=== PATIENT | male | born 1945 | race African-American/Black ===

== ENCOUNTER → 2017-09-01 | Day surgery (SDC) | payer MEDICARE, MEDICAID ==
[~2017-09-01] VITALS: Ht 175.3 cm; Wt 63.5 kg
[~2017-09-01] MED LIST: BACITRACIN 50,000 UNITS/VIAL ONE; BUPIVACAINE HCL/PF 0.5% (5MG/ML) 10ML ONE; LIDOCAINE HCL 1% 20ML VIAL (Pyxis) INJ ONE; NORMAL SALINE 0.9% 10 ML SYR ONE; QUIN20TA30 PO; TAMS0.4C31 PO; TYLENOL #4 PO
[2017-09-01] MEDS: LACTATED RINGERS 1,000 ML IV SCH (09:50)
[2017-09-01 10:13] LABS: BASOPHILS % 0.6 % (0.0-2.0); EOSINOPHILS % 3.9 % (0.0-5.0); HEMATOCRIT. 37.7 % (42.0-52.0); HEMOGLOBIN. 12.7 g/dL (14.0-18.0); LYMPHOCYTES % 38.6 % (20.0-50.0); MEAN CORPUSCULAR HEMOGLOBIN 31.6 pg (28.0-32.0); MEAN CORPUSCULAR VOLUME 93.7 fL (80.0-94.0); MEAN PLATELET VOLUME 7.5 fl (7.4-10.4); NEUTROPHILS % 46.9 % (40.0-76.0); PLATELET 158 x1000/uL (130-400); RED BLOOD CELL COUNT 4.03 mill/uL (4.7-6.1); RED CELL DISTRIBUTION WIDTH 13.6 % (11.6-14.6)
[2017-09-01 10:25] LABS: INR 1.1; PARTIAL THROMBOPLASTIN TIME 35.3 sec (23.4-31.0); PROTHROMBIN TIME 11.2 sec (9.4-11.6)
[2017-09-01 10:26] LABS: CARBON DIOXIDE 27 mEq/L (21-32); CHLORIDE 109 mEq/L (98-107)
[2017-09-01 12:00] LABS: CLARITY URINE CLEAR (CLEAR); COLOR URINE YELLOW (YELLOW); KETONES URINE NEGATIVE (NEGATIVE); LEUKOCYTE ESTERASE URINE 3+ (NEGATIVE); NITRITE URINE NEGATIVE (NEGATIVE); OCCULT BLOOD URINE TRACE (NEGATIVE); PH URINE 5.5 (4.5-8.0); PROTEIN URINE NEGATIVE (NEGATIVE); SPECIFIC GRAVITY URINE 1.008 (1.005-1.030); UROBILINOGEN URINE 0.2 E.U./dL (0.2-1.0)
== END | disposition home or self-care (01) ==
LOC: OR 08:14
PROVIDERS: ATTEND Specialist
DX: K40.91 Unilateral inguinal hernia, without obstruction or gangrene, recurrent (principal); Z53.8 Procedure and treatment not carried out for other reasons; N39.0 Urinary tract infection, site not specified
CPT/HCPCS: 36415; 49507; 80048; 81001; 85025; 85610; 85730; 87077; 87086; 87186; 93005; J7120; A4216; J3490

== ENCOUNTER 2018-05-06 12:18 | Inpatient (IN) | payer MEDICARE, MEDICAID ==
[2018-05-06] VITALS (15 sets, daily range): BP systolic 115–146; BP diastolic 63–93
[~2018-05-06] VITALS: Ht 175.3 cm; Wt 69.4 kg
[~2018-05-06 12:18] MED LIST changes: -BACITRACIN 50,000 UNITS/VIAL ONE; -BUPIVACAINE HCL/PF 0.5% (5MG/ML) 10ML ONE; +HYDR-4001 PO; -LIDOCAINE HCL 1% 20ML VIAL (Pyxis) INJ ONE; -NORMAL SALINE 0.9% 10 ML SYR ONE; +SULF1TAB48 PO; -TYLENOL #4 PO
[2018-05-06] MEDS ORDERED: SODIUM CHLORIDE 0.9% 1,000 ML IV ONE (13:15)
[2018-05-06] MEDS ORDERED: METHYLPREDNISOLONE SOD SUCC 125 MG/2 ML VIAL IV ONE (13:15)
[2018-05-06] MEDS ORDERED: MORPHINE SULFATE 4 MG/ML CPJ (NOT FOR IM USE) IV ONE (13:30)
[2018-05-06] MEDS ORDERED: NA PHOS,M-B/NA PHOS,DI-BA ENEMA 118ML PR PRN (15:00)
[2018-05-06] MEDS ORDERED: ACETAMINOPHEN 650MG SUPP PR PRN (15:00)
[2018-05-06] MEDS ORDERED: ACETAMINOPHEN 650MG/20.3ML UDC GT PRN (15:00)
[2018-05-06] MEDS ORDERED: DOCUSATE SODIUM 100MG CAPSULE PO PRN (15:00)
[2018-05-06] MEDS ORDERED: GUAIFENESIN 200MG/10ML SUGAR FREE UDC PO PRN (15:00)
[2018-05-06] MEDS ORDERED: CLONIDINE 0.1MG TABLET PO PRN (15:00)
[2018-05-06] MEDS ORDERED: IPRATROPIUM/ALBUTEROL 0.5-3(2.5)MG/3ML NEB INH PRN (15:00)
[2018-05-06] MEDS ORDERED: MAGNESIUM/ALUMINUM HYDROXIDE/SIMETHICONE 30ML UDC PO PRN (15:00)
[2018-05-06] MEDS ORDERED: ONDANSETRON HCL 4MG/2ML INJ IV PRN (15:00)
[2018-05-06] MEDS ORDERED: ACETAMINOPHEN 325MG TABLET PO PRN (15:00)
[2018-05-06 15:29] LABS: BASOPHILS % 0.2 % (0.0-2.0); CHLORIDE 106 mEq/L (98-107); EOSINOPHILS % 11.3 % (0.0-5.0); HEMATOCRIT. 34.6 % (42.0-52.0); HEMOGLOBIN. 11.5 g/dL (14.0-18.0); LYMPHOCYTES % 7.2 % (20.0-50.0); MEAN CORPUSCULAR HEMOGLOBIN 31.4 pg (28.0-32.0); MEAN CORPUSCULAR VOLUME 94.3 fL (80.0-94.0); MEAN PLATELET VOLUME 8.9 fl (7.4-10.4); MONOCYTES % 3.2 % (2.0-8.0); NEUTROPHILS % 78.1 % (40.0-76.0); PLATELET 113 x1000/uL (130-400); RED BLOOD CELL COUNT 3.66 mill/uL (4.7-6.1); RED CELL DISTRIBUTION WIDTH 13.8 % (11.6-14.6)
[2018-05-06 15:53] LABS: INR 1.1; PROTHROMBIN TIME 10.9 sec (9.1-11.1)
[2018-05-06] MEDS: MONTELUKAST SODIUM 10MG TABLET PO SCH (16:43)
[2018-05-06] MEDS: DIPHENHYDRAMINE 50MG/ML VIAL IV PRN ×2 (16:43→23:30)
[2018-05-06] MEDS: FAMOTIDINE 20MG TABLET PO SCH (16:43)
[2018-05-06] MEDS: MORPHINE SULFATE 4 MG/ML CPJ (NOT FOR IM USE) IV PRN ×2 (16:43→23:31)
[2018-05-06] MEDS: SODIUM CHLORIDE 0.9% 1,000 ML IV SCH ×2 (16:44→23:32)
[2018-05-06] MEDS: METHYLPREDNISOLONE SOD SUCC 125 MG/2 ML VIAL IV SCH (20:07)
[2018-05-07] VITALS (24 sets, daily range): BP systolic 113–167; BP diastolic 63–89
[2018-05-07] MEDS: IPRATROPIUM/ALBUTEROL 0.5-3(2.5)MG/3ML NEB HHN SCH ×4 (02:14→20:56)
[2018-05-07] MEDS: METHYLPREDNISOLONE SOD SUCC 125 MG/2 ML VIAL IV SCH ×4 (03:25→20:37)
[2018-05-07 03:46] LABS: CLARITY URINE CLOUDY (CLEAR); COLOR URINE YELLOW (YELLOW); KETONES URINE NEGATIVE (NEGATIVE); LEUKOCYTE ESTERASE URINE 3+ (NEGATIVE); NITRITE URINE NEGATIVE (NEGATIVE); OCCULT BLOOD URINE NEGATIVE (NEGATIVE); PROTEIN URINE 1+ (NEGATIVE); UROBILINOGEN URINE 0.2 E.U./dL (0.2-1.0)
[2018-05-07] MEDS: DIPHENHYDRAMINE 50MG/ML VIAL IV PRN (04:10)
[2018-05-07] MEDS: MORPHINE SULFATE 4 MG/ML CPJ (NOT FOR IM USE) IV PRN (04:11)
[2018-05-07 04:26] LABS: *AMPHETAMINES SCREEN URINE NEGATIVE (NEGATIVE); *COCAINE SCREEN URINE PRESUMTIVE POSITIVE (NEGATIVE); CANNABINOID URINE SCREEN PRESUMTIVE POSITIVE (NEGATIVE); METHADONE URINE SCREEN NEGATIVE (NEGATIVE); OPIATES URINE SCREEN PRESUMTIVE POSITIVE (NEGATIVE); PHENCYCLIDINE URINE SCREEN NEGATIVE (NEGATIVE)
[2018-05-07 04:27] LABS: *BARBITURATES SCREEN URINE NEGATIVE (NEGATIVE); *BENZODIAZEPINES SCREEN URINE NEGATIVE (NEGATIVE)
[2018-05-07 05:23] LABS: BASOPHILS % 0.1 % (0.0-2.0); EOSINOPHILS % 3.6 % (0.0-5.0); HEMATOCRIT. 34.3 % (42.0-52.0); HEMOGLOBIN. 11.6 g/dL (14.0-18.0); LYMPHOCYTES % 7.4 % (20.0-50.0); MEAN CORPUSCULAR HEMOGLOBIN 31.5 pg (28.0-32.0); MEAN CORPUSCULAR VOLUME 93.4 fL (80.0-94.0); MEAN PLATELET VOLUME 9.1 fl (7.4-10.4); MONOCYTES % 3.4 % (2.0-8.0); NEUTROPHILS % 85.5 % (40.0-76.0); PLATELET 113 x1000/uL (130-400); RED BLOOD CELL COUNT 3.68 mill/uL (4.7-6.1); RED CELL DISTRIBUTION WIDTH 14.2 % (11.6-14.6)
[2018-05-07 05:34] LABS: CHLORIDE 110 mEq/L (98-107)
[2018-05-07 05:43] LABS: PHOSPHORUS 2.8 mg/dL (2.5-4.9)
[2018-05-07 05:45] LABS: LDL CHOLESTEROL 73 mg/dL (5-100)
[2018-05-07 05:46] LABS: HDL CHOLESTEROL 23 mg/dL (40-59)
[2018-05-07] MEDS: FAMOTIDINE 20MG TABLET PO SCH (09:01)
[2018-05-07] MEDS: SODIUM CHLORIDE 0.9% 1,000 ML IV SCH ×2 (10:31→20:37)
[2018-05-07] MEDS ORDERED: SODIUM CHLORIDE 0.9% IV SCH (12:00)
[2018-05-07] MEDS ORDERED: AMPICILLIN IV SCH (12:00)
[2018-05-07] MEDS: AMPICILLIN 500MG in SODIUM CHLORIDE 0.9% 50ML IV SCH ×2 (13:54→22:29)
[2018-05-07] MEDS: PHENAZOPYRIDINE HCL 100MG TABLET PO SCH ×2 (13:54→17:57)
[2018-05-07] MEDS: MONTELUKAST SODIUM 10MG TABLET PO SCH (17:56)
[2018-05-08] VITALS: BP 118/76
[2018-05-08] MEDS: IPRATROPIUM/ALBUTEROL 0.5-3(2.5)MG/3ML NEB HHN SCH ×3 (01:05→14:05)
[2018-05-08] MEDS: METHYLPREDNISOLONE SOD SUCC 125 MG/2 ML VIAL IV SCH ×3 (03:31→15:04)
[2018-05-08 04:00] VITALS: BP 141/86
[2018-05-08] MEDS: SODIUM CHLORIDE 0.9% 1,000 ML IV SCH (06:08)
[2018-05-08] MEDS: AMPICILLIN 500MG in SODIUM CHLORIDE 0.9% 50ML IV SCH ×3 (06:08→15:04)
[2018-05-08 08:00] VITALS: BP 154/109
[2018-05-08] MEDS: FAMOTIDINE 20MG TABLET PO SCH (08:27)
[2018-05-08] MEDS: PHENAZOPYRIDINE HCL 100MG TABLET PO SCH ×2 (08:27→15:03)
[2018-05-08 12:00] VITALS: BP 131/74
[2018-05-08 12:51] LABS: HEMOGLOBIN. 11.4 g/dL (14.0-18.0); MEAN CORPUSCULAR HEMOGLOBIN 31.5 pg (28.0-32.0); MEAN CORPUSCULAR VOLUME 94.1 fL (80.0-94.0); MEAN PLATELET VOLUME 8.5 fl (7.4-10.4); PLATELET 133 x1000/uL (130-400); RED BLOOD CELL COUNT 3.61 mill/uL (4.7-6.1)
[2018-05-08 13:01] LABS: CHLORIDE 112 mEq/L (98-107)
[2018-05-08] MEDS: MORPHINE SULFATE 4 MG/ML CPJ (NOT FOR IM USE) IV PRN (15:06)
[2018-05-08 15:36] VITALS: BP 139/54
[2018-05-08 16:00] VITALS: BP 160/93
[2018-05-08 17:16] LABS: PLATELET ESTIMATE NORMAL
== END 2018-05-08 17:00 | disposition home health service (06) | DRG 595 ==
LOC: ER 13:15 → EDBEDREQ 13:17 → EDBEDREQTM 13:19 → ENRESERV 13:23 → MICUSO 13:30 → 5WST 05-07 14:34
PROVIDERS: ADMIT Family Medicine; ATTEND Family Medicine
DX: L51.1 Stevens-Johnson syndrome (principal); N17.0 Acute kidney failure with tubular necrosis; E43 Unspecified severe protein-calorie malnutrition; D63.8 Anemia in other chronic diseases classified elsewhere; F17.200 Nicotine dependence, unspecified, uncomplicated; J42 Unspecified chronic bronchitis; J45.909 Unspecified asthma, uncomplicated; N40.0 Benign prostatic hyperplasia without lower urinary tract symptoms; Z87.440 Personal history of urinary (tract) infections; Z88.2 Allergy status to sulfonamides; Z88.9 Allergy status to unspecified drugs, medicaments and biological substances; I12.9 Hypertensive chronic kidney disease with stage 1 through stage 4 chronic kidney disease, or unspecified chronic kidney disease; N18.9 Chronic kidney disease, unspecified; Z68.22 Body mass index [BMI] 22.0-22.9, adult
CPT/HCPCS: 36415; 76770; 80053; 80061; 80305; 81003; 82570; 83735; 84100; 84156; 84300; 85025; 85610; 85651; 86140; 87086; 94640; 96361; 96374; 96375; 99285; J0290; J1200; J2270; J2930; J7030; J7620

== ENCOUNTER 2019-01-17 12:38 | Emergency (ER) | payer MEDICARE, MEDICAID ==
[~2019-01-17] VITALS: Ht 180.3 cm; Wt 77.0 kg
[~2019-01-17 12:38] MED LIST changes: -SULF1TAB48 PO
[2019-01-17] MEDS ORDERED: CEFTRIAXONE 1 G PREMIX 50 ML IV ONE (13:15)
[2019-01-17] MEDS ORDERED: SODIUM CHLORIDE 0.9% 1000ML BAG (SEPSIS BOLUS) IV ONE (13:15)
[2019-01-17] MEDS ORDERED: MORPHINE SULFATE 2 MG/ML CPJ (NOT FOR IM USE) IV ONE (13:15)
[2019-01-17 13:37] LABS: BASOPHILS % 0.3 % (0.0-2.0); EOSINOPHILS % 3.4 % (0.0-5.0); HEMATOCRIT. 40.7 % (42.0-52.0); HEMOGLOBIN. 13.7 g/dL (14.0-18.0); LYMPHOCYTES % 42.1 % (20.0-50.0); MEAN CORPUSCULAR HEMOGLOBIN 31.9 pg (28.0-32.0); MEAN CORPUSCULAR VOLUME 94.3 fL (80.0-94.0); MEAN PLATELET VOLUME 8.1 fl (7.4-10.4); NEUTROPHILS % 46.2 % (40.0-76.0); PLATELET 141 x1000/uL (130-400); RED BLOOD CELL COUNT 4.31 mill/uL (4.7-6.1); RED CELL DISTRIBUTION WIDTH 14.5 % (11.6-14.6)
[2019-01-17 13:44] LABS: CHLORIDE 113 mEq/L (98-107)
[2019-01-17] MEDS ORDERED: ONDANSETRON HCL 4MG/2ML INJ IV ONE (13:45)
[2019-01-17 15:42] LABS: CLARITY URINE CLEAR (CLEAR); COLOR URINE YELLOW (YELLOW); KETONES URINE NEGATIVE (NEGATIVE); LEUKOCYTE ESTERASE URINE NEGATIVE (NEGATIVE); NITRITE URINE NEGATIVE (NEGATIVE); OCCULT BLOOD URINE NEGATIVE (NEGATIVE); PH URINE 6.5 (4.5-8.0); PROTEIN URINE 1+ (NEGATIVE); SPECIFIC GRAVITY URINE 1.012 (1.005-1.030); UROBILINOGEN URINE 0.2 E.U./dL (0.2-1.0)
[2019-01-17 17:12] VITALS: BP 97/61
== END 2019-01-17 17:50 | disposition left against medical advice (07) ==
LOC: ER 12:38 → CANBEDREQ 19:46
DX: A41.9 Sepsis, unspecified organism (principal); N39.0 Urinary tract infection, site not specified; I95.9 Hypotension, unspecified; I10 Essential (primary) hypertension; F12.10 Cannabis abuse, uncomplicated; Z88.2 Allergy status to sulfonamides
CPT/HCPCS: 36415; 70450; 71045; 80053; 81003; 83605; 83690; 83880; 84484; 85025; 87040; 87077; 87086; 87186; 93005; 96361; 96365; 96375; 99291; J0696; J2270; J2405; J7030

== ENCOUNTER → 2020-06-02 | Outpatient (CLI) | payer MEDICARE, MEDICAID ==
[~2020-06-02] MED LIST changes: +CILO100T PO; +METO-396 PO; +METO25TA3 PO; +TAMS-11 PO; +ZOLP5TAB2 PO
== END | disposition home or self-care (01) ==
LOC: LAB 16:37
PROVIDERS: ATTEND Surgery Vascular Surgery
DX: Z01.812 Encounter for preprocedural laboratory examination (principal); Z20.828 Contact with and (suspected) exposure to other viral communicable diseases; I70.219 Atherosclerosis of native arteries of extremities with intermittent claudication, unspecified extremity
CPT/HCPCS: C9803; U0003